=== PATIENT | male | born 1965 | race Caucasian/White ===

== ENCOUNTER 2023-04-13 08:13 | Inpatient (IN) | payer BC, OTHER ==
[~2023-04-13] VITALS: Ht 172.7 cm; Wt 73.9 kg
[2023-04-13] MEDS ORDERED: ACETAMINOPHEN 650MG SUPP PR STA (09:44)
[2023-04-13] MEDS ORDERED: VANCOMYCIN 1G PREMIX 200 ML IV ONE (09:45)
[2023-04-13] MEDS ORDERED: SODIUM CHLORIDE 0.9% 1000ML BAG (SEPSIS BOLUS) IV ONE (09:45)
[2023-04-13] MEDS ORDERED: CEFTRIAXONE 1GM PREMIX 50 ML IV ONE ×2 (09:45→12:30)
[2023-04-13 09:54] LABS: PARTIAL THROMBOPLASTIN TIME 23.3 sec (23.4-31.0); PROTHROMBIN TIME 10.4 sec (9.6-11.0)
[2023-04-13 10:05] LABS: CLARITY URINE CLEAR (CLEAR); COLOR URINE YELLOW (YELLOW); GLUCOSE URINE NEGATIVE (NEGATIVE); KETONES URINE NEGATIVE (NEGATIVE); LEUKOCYTE ESTERASE URINE NEGATIVE (NEGATIVE); NITRITE URINE NEGATIVE (NEGATIVE); OCCULT BLOOD URINE 2+ (NEGATIVE); PH URINE 6.5 (4.5-8.0); PROTEIN URINE TRACE (NEGATIVE); SPECIFIC GRAVITY URINE 1.014 (1.005-1.030)
[2023-04-13 10:07] LABS: HEMATOCRIT. 38.8 % (42.0-52.0); HEMOGLOBIN. 12.7 g/dL (14.0-18.0); MEAN CORPUSCULAR HEMOGLOBIN 27.9 pg (28.0-32.0); MEAN CORPUSCULAR HGB CONC 32.8 g/dL (31.0-37.0); MEAN CORPUSCULAR VOLUME 85.1 fL (80.0-94.0); PLATELET 385 x1000/uL (130-400); RED BLOOD CELL COUNT 4.56 mill/uL (4.7-6.1); RED CELL DISTRIBUTION WIDTH 15.6 % (11.6-14.6); WHITE BLOOD COUNT 24.4 x1000/uL (4.5-11.0)
[2023-04-13 10:08] LABS: BACTERIA URINE 2+; RBC URINE 15-25 /hpf (0-2); SQUAMOUS EPITHELIAL CELL URINE NONE SEEN /lpf (RARE/1+); WBC URINE 0-2 /hpf (0-2); YEAST URINE NONE SEEN
[2023-04-13 10:09] LABS: DIFFERENTIAL COMMENT 1
[2023-04-13 10:16] LABS: AMMONIA 22 uMol/L (<32)
[2023-04-13 10:16] LABS: CALCIUM OXALATE CRYSTALS URINE 1+ /lpf
[2023-04-13 10:34] LABS: CHLORIDE 103 mEq/L (98-107); INDEX HEMOLYSI 1 (1-3); INDEX ICTERIC 1 (1-4); INDEX LIPEMIC 1 (1-3); POTASSIUM 3.6 mEq/L (3.5-5.1); SODIUM 135 mEq/L (136-145)
[2023-04-13 10:43] LABS: LACTIC ACID 2.7 mmol/L (0.4-2.0)
[2023-04-13 10:47] LABS: *AMPHETAMINES SCREEN URINE NEGATIVE (NEGATIVE); *BARBITURATES SCREEN URINE NEGATIVE (NEGATIVE); *BENZODIAZEPINES SCREEN URINE NEGATIVE (NEGATIVE); *COCAINE SCREEN URINE NEGATIVE (NEGATIVE); CANNABINOID URINE SCREEN NEGATIVE (NEGATIVE); ECSTASY MDMA SCREEN URINE NEGATIVE (NEGATIVE); METHADONE URINE SCREEN NEGATIVE (NEGATIVE); OPIATES URINE SCREEN NEGATIVE (NEGATIVE); PHENCYCLIDINE URINE SCREEN NEGATIVE (NEGATIVE)
[2023-04-13 10:49] LABS: BG BASE EXCESS -2.7 mmol/L (-2.0-2.0); BG CARBOXYHEMOGLOBIN 0.7 % (0.5-1.5); BG DEOXYHEMOGLOBIN 3.3 % (0.0-5.0); BG FRACTION INSPIRED OXYGEN 32; BG HCO3 ACT 20.2 mmol/L (22.0-26.0); BG METHEMOGLOBIN 0.1 % (0.0-1.5); BG OXYGEN SATURATION 96.7 % (92.0-98.5); BG OXYHEMOGLOBIN 95.9 % (94.0-97.0); BG PCO2 29.7 mmHg (35.0-45.0); BG PO2 93.3 mmHg (75.0-100.0); BG SAMPLE SITE RIGHT BRACHIAL; BG TOTAL HEMOGLOBIN 12.7 g/dL (12.0-18.0); BG VENT MODE NASAL CANNULA
[2023-04-13 10:52] LABS: ACETAMINOPHEN <2 ug/mL ug/mL (10-30); ALANINE AMINOTRANSFERASE 109 IU/L (13-61); ASPARTATE AMINOTRANSFERASE 115 IU/L (15-37); BILIRUBIN TOTAL 0.9 mg/dL (0.1-1.0); CARBON DIOXIDE 23 mEq/L (21-32); CREATININE 0.9 mg/dL (0.6-1.3); ETHANOL BLOOD < 10 mg/dL (<10); GLUCOSE 133 mg/dL (70-105); NT PRO B-TYPE NATRIURETIC PEP 54 pg/mL (5-125); PROTEIN TOTAL 8.4 g/dL (6.0-8.3); UREA NITROGEN BLOOD 27 mg/dL (7-21)
[2023-04-13 12:02] LABS: PLATELET ESTIMATE NORMAL
[2023-04-13] MEDS ORDERED: VANCOMYCIN 500MG PREMIX 100 ML IV STA (12:20)
[2023-04-13 12:27] LABS: TROPONIN I HIGH SENSITIVITY 23 ng/L (<78)
[2023-04-13] MEDS ORDERED: VANCOMYCIN 500MG PREMIX 100 ML IV SCH (12:30)
[2023-04-13 16:00] LABS: GLUCOSE CSF 50 mg/dL (41-75)
[2023-04-13] MEDS ORDERED: HYDRALAZINE 20MG/ML VIAL IV NR (17:00)
[2023-04-13 17:20] LABS: CSF APPEARANCE CLOUDY (CLEAR)
[2023-04-13] MEDS ORDERED: ACETAMINOPHEN 650MG SUPP PR NR (19:00)
[2023-04-13 23:00] VITALS: BP 142/107; PULSE 78; TEMP 99.8
[2023-04-13 23:02] VITALS: BP 150/98; PULSE 101
[2023-04-13 23:30] VITALS: BP 154/93; PULSE 91; RESP 24
[2023-04-13] MEDS ORDERED: DEXT 5%/0.45% NACL KCL 20MEQ/L 1,000 ML IV SCH (23:45)
[2023-04-13] MEDS ORDERED: ACETAMINOPHEN 650MG SUPP PR PRN (23:45)
[2023-04-13] MEDS ORDERED: HYDRALAZINE 20MG/ML VIAL IV PRN (23:45)
[2023-04-13] MEDS ORDERED: ONDANSETRON HCL 4MG/2ML INJ IV PRN (23:45)
[2023-04-14] VITALS (49 sets, daily range): BP systolic 107–154; BP diastolic 79–114; PULSE 87–130; RESP 13–30; TEMP 97.5–99.8
[2023-04-14] MEDS: VANCOMYCIN 1.25GM PMX (XELLIA) 250 ML IV SCH ×3 (01:14→22:45)
[2023-04-14] MEDS ORDERED: IOHEXOL-350 100 ML BOTTLE ONE (03:47)
[2023-04-14 04:49] LABS: BASOPHILS % 0.6 % (0.0-2.0); EOSINOPHILS % 7.5 % (0.0-5.0); HEMATOCRIT. 38.9 % (42.0-52.0); HEMOGLOBIN. 12.8 g/dL (14.0-18.0); LYMPHOCYTES % 8.3 % (20.0-50.0); MEAN CORPUSCULAR HEMOGLOBIN 27.9 pg (28.0-32.0); MEAN CORPUSCULAR HGB CONC 32.8 g/dL (31.0-37.0); MEAN PLATELET VOLUME 8.8 fl (7.4-10.4); MONOCYTES % 7.4 % (2.0-8.0); NEUTROPHILS % 76.2 % (40.0-76.0); PLATELET 288 x1000/uL (130-400); RED BLOOD CELL COUNT 4.58 mill/uL (4.7-6.1); WHITE BLOOD COUNT 17.1 x1000/uL (4.5-11.0)
[2023-04-14 05:01] LABS: CHLORIDE 96 mEq/L (98-107); INDEX HEMOLYSI 1 (1-3); INDEX ICTERIC 1 (1-4); INDEX LIPEMIC 1 (1-3); POTASSIUM 3.2 mEq/L (3.5-5.1); SODIUM 128 mEq/L (136-145)
[2023-04-14 05:07] LABS: CALCIUM 8.7 mg/dL (8.5-10.1); CARBON DIOXIDE 23 mEq/L (21-32); CREATININE 0.6 mg/dL (0.6-1.3); GLUCOSE 150 mg/dL (70-105); UREA NITROGEN BLOOD 11 mg/dL (7-21)
[2023-04-14] MEDS: CEFTRIAXONE 2 G in DEXTROSE 5% WATER 50 ML IV SCH ×2 (05:12→17:14)
[2023-04-14] MEDS ORDERED: CEFTRIAXONE 2GM/50ML (ADDEASE) 50 ML IV SCH (09:00)
[2023-04-14] MEDS ORDERED: LORAZEPAM 2MG/ML CPJ IV PRN (09:30)
[2023-04-14] MEDS ORDERED: POTASSIUM CHLORIDE INJ 40 MEQ in DEXT 5% WATER 250 ML IV ONE (09:30)
[2023-04-14 10:08] LABS: CSF WHITE BLOOD CELL 3300 /cu mm (0-10)
[2023-04-14] MEDS: PANTOPRAZOLE SODIUM 40 MG/VIAL IV SCH (10:10)
[2023-04-14] MEDS: KCL 20MEQ/100ML X 2 FOR TOTAL KCL 40MEQ/200ML IV SCH ×2 (10:10→12:10)
[2023-04-14] MEDS: DEXT 5%/0.9% NACL 1,000 ML IV SCH ×2 (10:12→22:45)
[2023-04-14] MEDS: AMPICILLIN 2,000 MG in SODIUM CHLORIDE 0.9% 100 ML IV SCH ×2 (17:14→22:45)
[2023-04-15] VITALS (34 sets, daily range): BP systolic 99–163; BP diastolic 64–119; PULSE 95–121; RESP 14–29; TEMP 98.8–99.3; O2SAT 98
[2023-04-15] MEDS: ACETAMINOPHEN 650MG/20.3ML UDC PO PRN ×2 (00:48→16:34)
[2023-04-15] MEDS: AMPICILLIN 2,000 MG in SODIUM CHLORIDE 0.9% 100 ML IV SCH ×2 (04:31→10:15)
[2023-04-15 04:41] LABS: HEMATOCRIT. 37.6 % (42.0-52.0); HEMOGLOBIN. 12.6 g/dL (14.0-18.0); MEAN CORPUSCULAR HEMOGLOBIN 28.1 pg (28.0-32.0); MEAN CORPUSCULAR HGB CONC 33.5 g/dL (31.0-37.0); MEAN CORPUSCULAR VOLUME 83.9 fL (80.0-94.0); MEAN PLATELET VOLUME 8.8 fl (7.4-10.4); PLATELET 297 x1000/uL (130-400); RED BLOOD CELL COUNT 4.48 mill/uL (4.7-6.1); RED CELL DISTRIBUTION WIDTH 15.6 % (11.6-14.6); WHITE BLOOD COUNT 12.6 x1000/uL (4.5-11.0)
[2023-04-15 04:51] LABS: CHLORIDE 105 mEq/L (98-107); INDEX HEMOLYSI 1 (1-3); INDEX ICTERIC 1 (1-4); INDEX LIPEMIC 1 (1-3); POTASSIUM 3.1 mEq/L (3.5-5.1); SODIUM 132 mEq/L (136-145)
[2023-04-15 04:59] LABS: CALCIUM 8.7 mg/dL (8.5-10.1); CARBON DIOXIDE 18 mEq/L (21-32); CREATININE 0.7 mg/dL (0.6-1.3); GLUCOSE 149 mg/dL (70-105); UREA NITROGEN BLOOD 9 mg/dL (7-21)
[2023-04-15] MEDS: CEFTRIAXONE 2 G in DEXTROSE 5% WATER 50 ML IV SCH (05:51)
[2023-04-15 06:13] LABS: DIFFERENTIAL COMMENT 1
[2023-04-15] MEDS: PANTOPRAZOLE SODIUM 40 MG/VIAL IV SCH (09:36)
[2023-04-15] MEDS: VANCOMYCIN 1.25GM PMX (XELLIA) 250 ML IV SCH (10:14)
[2023-04-15 11:01] LABS: PLATELET ESTIMATE NORMAL
[2023-04-15] MEDS ORDERED: POTASSIUM CHLORIDE 20MEQ TABLET SR PO NR ×2 (11:45→15:45)
[2023-04-15] MEDS ORDERED: HYDROCORTISONE 1% OINT 28.35GM TOP SCH (14:00)
[2023-04-15] MEDS ORDERED: VANCOMYCIN 1G PREMIX 200 ML IV SCH (22:00)
== END 2023-04-15 17:41 | disposition short-term general hospital (02) | DRG 871 ==
LOC: ER 08:13 → EDBEDREQTM 11:27 → EDBEDREQ 11:27 → EDBEDREQTM 12:55 → EDBEDREQSVC 16:52 → MICUSO 23:17
PROVIDERS: ADMIT Internal Medicine; ATTEND Internal Medicine
PROC: 009U3ZZ Drainage of Spinal Canal, Percutaneous Approach (ICD-10-PCS; principal; 2023-04-13)
PROC: B01B1ZZ Fluoroscopy of Spinal Cord using Low Osmolar Contrast (ICD-10-PCS; 2023-04-13)
DX: A41.9 Sepsis, unspecified organism (principal); G03.9 Meningitis, unspecified; G93.41 Metabolic encephalopathy; E87.1 Hypo-osmolality and hyponatremia; Z20.822 Contact with and (suspected) exposure to COVID-19; I16.0 Hypertensive urgency; I10 Essential (primary) hypertension; R74.01 Elevation of levels of liver transaminase levels; Z86.61 Personal history of infections of the central nervous system; W18.39XA Other fall on same level, initial encounter; Y93.89 Activity, other specified; Y92.008 Other place in unspecified non-institutional (private) residence as the place of occurrence of the external cause; Y99.8 Other external cause status
CPT/HCPCS: 36415; 36600; 62328; 71045; 71275; 72170; 74174; 80048; 80053; 80202; 80305; 80307; 80320; 80329; 81003; 82140; 82375; 82805; 82945; 82962; 83605; 83880; 84157; 84443; 84484; 85025; 86850; 86900; 87070; 87077; 87186; 87426; 87899; 93005; 99291; C9113; C9803; J0290; J0360; J0696; J3370; J3480; J7030; J7042; J7050; J7060; Q9967; G0480